=== PATIENT | male | born 1960 | race Hispanic/Latino ===

== ENCOUNTER 2017-08-03 13:38 | Emergency (ER) | payer MEDICARE, MEDICAID ==
[2017-08-03 13:38] VITALS: BMI 22.8
[2017-08-03 14:35] LABS: BASO # 0.1 K/uL (0.0-0.2); BASO % 0.5 % (0.0-2.0); EOS # 0.1 K/uL (0.0-0.7); EOS % 0.8 % (0.0-4.0); HEMOGLOBIN 13.7 g/dL (12.0-18.0); LYMPH # 0.8 K/uL (1.0-4.3); LYMPH % 6.2 % (20.0-40.0); MEAN CELL VOLUME 85.9 fl (80.0-94.0); MEAN CORPUSCULAR HEMOGLOBIN 29.7 pg (27.0-31.0); MEAN CORPUSCULAR HGB CONC 34.6 g/dL (33.0-37.0); MEAN PLATELET VOLUME 7.1 fl (7.2-11.7); MONO # 0.8 K/uL (0.0-0.8); MONO % 6.1 % (0.0-10.0); NEUT # 10.9 K/uL (1.8-7.0); NEUT % 86.4 % (50.0-75.0); NRBC % 0.2 % (0.0-0.0); PLATELET COUNT 295 K/uL (130-400); RBC 4.61 Mil/uL (4.40-5.90); RED CELL DISTRIBUTION WIDTH 14.9 % (11.5-14.5); WHITE BLOOD COUNT 12.6 K/uL (4.8-10.8)
[2017-08-03 14:42] LABS: ALB/GLOB RATIO 1.2 (1.0-2.1); ALBUMIN 3.6 g/dL (3.5-5.0); ALT/SGPT 30 U/L (21-72); AST/SGOT 21 U/L (17-59); BLOOD UREA NITROGEN 14 mg/dl (9-20); CALCIUM 8.4 mg/dL (8.4-10.2); GFR AFRICAN-AMERICAN > 60; GFR NON-AFRICAN AMERICAN > 60; LIPASE 31 U/L (23-300)
--- NOTE | 2017-08-03 15:05 | RAD ---
PROCEDURE: Radiographs of the chest and abdomen (obstructive series) HISTORY: constipation COMPARISON: CT abdomen and pelvis from 05/26/2015 TECHNIQUE: AP radiograph of the chest, with upright and supine radiographs of the abdomen. FINDINGS: CHEST: Lungs: There is low lung volume on the right. The left lung is well inflated and clear. Cardiovascular: Normal size heart. No pulmonary vascular congestion. Pleura: No pleural fluid. No pneumothorax. Other findings: None. ABDOMEN AND PELVIS: Bowel: There is large amount of stool in the right hemicolon and gas is distension of the transverse and left colon. There is also mild gaseous distension of the small bowel loops. Free air: None. Bones: Unremarkable. Other findings: None. IMPRESSION: Fecal retention in the right hemicolon and rectum and gaseous distension of the transverse and left hemicolon as well as small bowel loops.
[2017-08-03 15:18] LABS: ANISOCYTOSIS SLIGHT; BASOPHIL 1 % (0-2); EOSINOPHIL 3 % (0-7); LYMPHOCYTE 6 % (20-50); MONOCYTE 6 % (0-10); NEUTROPHIL 84 % (42-75); PLATELET ESTIMATE NORMAL (NORMAL); TOTAL CELLS COUNTED 100
--- NOTE | 2017-08-03 15:24 | ED PDOC ---
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 denies: Fever, Chills, Vomiting, Diarrhea Exacerbating Factors: None Alleviating Factors: None Last Bowel Movement: Days Ago (8) Additional Complaint(s): 57yo male hx cerebral palsy bedbound for last few years, currently on cipro from visiting nurse practicioner for presumed UTI (no culture/UA yet), now also no BM for last 8 days, feels nausea but no fever, syncope, blood in stool. + dark urine, incontinent. Sister giving PO lactulose without improvement. Past Medical History Reviewed: Historical Data, Nursing Documentation, Vital Signs Vital Signs: Last Vital Signs Temp 98.2 F 08/03/17 20:05 Pulse 97 H 08/03/17 20:05 Resp 18 08/03/17 20:05 BP 146/89 08/03/17 20:05 Pulse Ox 96 08/03/17 20:05 - Medical History PMH: Anxiety, Asthma, Benign Prostatic Hyperplasia (with indwelling wilkerson placed ), Depression, Malignancy (prostate CA), Pulmonary Embolism (April 2015) Denies: Arthritis, CHF, COPD, Diabetes, HIV, HTN, Hypercholesterolemia, Hypothyroidism, Chronic Kidney Disease, Rheumatoid Arthritis - Surgical History Surgical History: No Surg Hx - Family History Family History: States: Unknown Family Hx - Living Arrangements Living Arrangements: With Family - Social History Current smoker - smoking cessation education provided: No - Home Medications Home Medications: Ambulatory Orders Medication Instructions Recorded ALPRAZolam [Xanax] 0.25 mg PO PRN PRN #0 tab 08/01/15 Atorvastatin [Lipitor] 40 mg PO DAILY #0 tab 08/01/15 Baclofen [Lioresal] 10 mg PO TID #0 tab 08/01/15 DULoxetine [Cymbalta] 20 mg PO BID #0 ecc 08/01/15 Montelukast [Singulair] 10 mg PO HS #0 tab 08/01/15 Oxymetazoline HCl [Nasal 2 spr NS Q12 #0 bottle 06/11/16 Decongestant 15 ml] Pantoprazole [Protonix EC Tab] 40 mg PO DAILY #0 ect 08/01/15 Rivaroxaban [Xarelto] 20 mg PO DAILY #0 tab 08/01/15 Ciprofloxacin [Cipro] 500 mg PO BID 08/14/15 Demeclocycline [Declomycin] 150 mg PO BID 08/14/15 Magnesium Citrate [Citrate of Mag] 50 ml PO BID PRN #1 bottle 08/03/17 - Allergies Allergies/Adverse Reactions: Allergies Allergy/AdvReac Type Severity Reaction Status Date / Time No Known Allergies Allergy Verified 08/03/17 13:40 Review of Systems Constitutional: Positive for: Malaise. Negative for: Fever, Sweats ENT: Negative for: Throat Pain Cardiovascular: Negative for: Chest Pain Respiratory: Negative for: Cough, Shortness of Breath Gastrointestinal: Positive for: Nausea, Abdominal Pain, Constipation. Negative for: Vomiting, Diarrhea, Hematochezia, Hematemesis Genitourinary Male: Positive for: Dysuria, Frequency, Hematuria Physical Exam - Reviewed Nursing Documentation Reviewed: Yes Vital Signs Reviewed: Yes - Physical Exam Appears: Positive for: Non-toxic (CP), No Acute Distress Head Exam: Positive for: ATRAUMATIC, NORMAL INSPECTION, NORMOCEPHALIC Skin: Positive for: Normal Color, Warm, DRY Eye Exam: Positive for: EOMI, Normal appearance, PERRL ENT: Positive for: Normal ENT Inspection Neck: Positive for: Normal, Painless ROM Cardiovascular/Chest: Positive for: Regular Rate, Rhythm Respiratory: Positive for: CNT, Normal Breath Sounds Gastrointestinal/Abdominal: Positive for: Soft, Distended (softly). Negative for: Tenderness, Asicites Back: Positive for: Normal Inspection Extremity: Positive for: Normal ROM Neurologic/Psych: Positive for: Alert, Oriented, Other (chronic contractures, at neuro baseline) - Laboratory Results Result Diagrams: 08/03/17 14:20 08/03/17 14:20 - ECG O2 Sat by Pulse Oximetry: 95 Medical Decision Making Medical Decision Making: labs reviewed patient given enemas in ED w large BM, felt much better therafter. UA reviewed and followup culture for definitive Abx selection. Disposition - Clinical Impression Clinical Impression: Constipation, Urinary tract infection - Patient ED Disposition Is Patient to be Admitted: No - Disposition Disposition: Routine/Home Disposition Time: 17:00 Condition: STABLE Additional Instructions: See your doctor in 1-2 days for reevaluation. Continue cipro antibiotic. Take medications as directed for constipation.;\ Prescriptions: Magnesium Citrate [Citrate of Mag] 50 ml PO BID PRN #1 bottle PRN Reason: Constipation Instructions: Urinary Tract Infections in Adults, Constipation, Adult (DC) Forms: [facility] ([place])
[2017-08-03] MEDS ORDERED: Fleet Enema (Ped ) 67.5 ml ONE (15:28)
[2017-08-03 15:37] LABS: URINE AMORPHOUS SEDIMENT RARE /ul (<OCC); URINE BILIRUBIN SMALL (NEGATIVE); URINE BLOOD LARGE (NEGATIVE); URINE CLARITY CLOUDY (Clear); URINE COLOR AMBER (YELLOW); URINE GLUCOSE (UA) NEG (Normal); URINE LEUKOCYTE ESTERASE TRACE Leu/uL (Negative); URINE PROTEIN 30 mg/dL (NEGATIVE)
[2017-08-03] MEDS ORDERED: Fleet Enema (Ped ) 67.5 ml PR ONE (15:45)
[2017-08-03] MEDS ORDERED: cefTRIAXone (Rocephin) 1 gm Inj ONE (18:26)
[2017-08-04 01:44] VITALS: BP 146/89; PULSE 97; RESP 18; TEMP 98.2
[2017-08-11 14:37] VITALS: O2SAT 95
== END 2017-08-03 20:05 | disposition home or self-care (01) ==
LOC: H.ER 13:38
DX: K59.00 Constipation, unspecified (principal); N39.0 Urinary tract infection, site not specified; Z86.59 Personal history of other mental and behavioral disorders; J45.909 Unspecified asthma, uncomplicated; N40.0 Benign prostatic hyperplasia without lower urinary tract symptoms; Z85.46 Personal history of malignant neoplasm of prostate; Z86.711 Personal history of pulmonary embolism
CPT/HCPCS: 74022; 80053; 81003; 83690; 85025; 87086; 96374; 99285; J0696